=== PATIENT | female | born 1980 | race Caucasian/White ===

== ENCOUNTER 2019-12-08 12:13 | Day surgery (SDC) | payer OTHER ==
[2019-12-05 13:41] LABS: HCG UR SG 1.005 (1.003-1.030)
[2019-12-05 13:44] LABS: BASOPHILS # (AUTO) 0.03 x10^3/uL (0-0.1); BASOPHILS % (AUTO) 0 % (0-1); EOSINOPHILS # (AUTO) 0.14 x10^3/uL (0-0.4); EOSINOPHILS % (AUTO) 1 % (1-7); LYMPHOCYTES # (AUTO) 2.06 x10^3/uL (1-3.4); LYMPHOCYTES % (AUTO) 21 % (22-44); MD NO; MEAN CORPUSCULAR HEMOGLOBIN 29.5 pg (27.0-34.8); MEAN CORPUSCULAR HGB CONC 33.7 g/dL (32.4-35.8); MEAN CORPUSCULAR VOLUME 87.7 fL (80-100); MEAN PLATELET VOLUME 7.9 fL (7.4-10.4); MONOCYTES # (AUTO) 0.71 x10^3/uL (0.2-0.8); MONOCYTES % (AUTO) 7 % (2-9); NEUTROPHILS # (AUTO) 7.02 x10^3/uL (1.8-6.8); NEUTROPHILS % (AUTO) 71 % (42-75); PLATELET COUNT 241 x10^3/uL (130-400); RED BLOOD COUNT 5.19 x10^6/uL (3.82-5.3); RED CELL DISTRIBUTION WIDTH 12.8 % (9.6-15.2)
[2019-12-05 14:02] LABS: ANION GAP 4 mmol/L (5-15); CHLORIDE 106 mmol/L (98-107)
[2019-12-05 14:04] LABS: CREATININE 0.96 mg/dL (0.55-1.02)
[2019-12-05 16:20] LABS: CALCIUM 9.3 mg/dL (8.5-10.1)
[~2019-12-08] VITALS: Ht 180.3 cm; Wt 106.0 kg
[~2019-12-08 12:13] MED LIST: BUPIVACAINE/PF-EPI 0.25% 1:200K ONE; NONE PER PT
[2019-12-08] MEDS ORDERED: CHLORHEXIDINE 15 ML UDC MM STA (13:31)
[2019-12-08] MEDS ORDERED: LACTATED RINGERS 1,000 ML IV SCH (13:32)
[2019-12-08] MEDS ORDERED: FENTANYL PF 250 MCG/5ML ONE (14:31)
[2019-12-08] MEDS ORDERED: MIDAZOLAM 1 MG/ML, 2ML ONE (14:31)
[2019-12-08] MEDS ORDERED: BUPIVACAINE/PF 0.25% ONE (14:40)
[2019-12-08] MEDS ORDERED: FLUORESCEIN SODIUM 500 MG/5 ML ONE (14:41)
[2019-12-08] MEDS ORDERED: EPINEPHRINE 1 MG/ML, 1ML ONE (14:41)
[2019-12-08] MEDS ORDERED: SCOPOLAMINE 1MG PATCH TD ONE (14:45)
[2019-12-08] MEDS ORDERED: SCOPOLAMINE 1MG PATCH TD SCH (15:00)
[2019-12-08] MEDS ORDERED: ROCURONIUM 10 MG/ML,10ML ONE (15:05)
[2019-12-08] MEDS ORDERED: ONDANSETRON 2MG/ML, 2ML ONE (15:05)
[2019-12-08] MEDS ORDERED: DEXAMETHASONE 4 MG/ML, 1ML ONE (15:05)
[2019-12-08] MEDS ORDERED: SUCCINYLCHOLINE 20 MG/ML, 10ML ONE (15:05)
[2019-12-08] MEDS ORDERED: PROPOFOL 10 MG/ML, 20ML ONE (15:05)
[2019-12-08] MEDS ORDERED: CEFAZOLIN 1,000 MG ONE (15:05)
[2019-12-08] MEDS ORDERED: BUPIVACAINE/PF-EPI 0.25% 1:200K SQ ONE (15:41)
[2019-12-08] MEDS ORDERED: DIAZEPAM 5 MG/ML, 2ML IV PRN ×2 (16:30)
[2019-12-08] MEDS ORDERED: PROMETHAZINE 25 MG/ML, 1ML IV PRN (16:30)
[2019-12-08] MEDS ORDERED: OXYcodone 5 MG/5 ML ORAL.SOL UDC PO PRN (16:30)
[2019-12-08] MEDS ORDERED: FENTANYL PF 100 MCG/2ML IV PRN (16:30)
[2019-12-08] MEDS ORDERED: LABETALOL 5MG/ML, 20ML IV PRN (16:30)
[2019-12-08] MEDS ORDERED: MEPERIDINE/PF 25MG/0.5ML IVPush PRN (16:30)
[2019-12-08] MEDS ORDERED: ONDANSETRON 2MG/ML, 2ML IVPush PRN (16:30)
[2019-12-08] MEDS ORDERED: KETOROLAC 30 MG/1 ML IV PRN (16:30)
[2019-12-08] MEDS ORDERED: HYDROmorphone 1 MG/ML, 1ML INJ IV PRN (16:30)
[2019-12-08] MEDS ORDERED: ALBUTEROL SULFATE 2.5 MG/3 ML NPPB PRN (16:30)
[2019-12-08] MEDS ORDERED: METOCLOPRAMIDE 5 MG/ML, 2ML IV PRN (16:30)
[2019-12-08] MEDS ORDERED: hydrALAzine 20 MG/ML, 1ML IV PRN (16:30)
[2019-12-08] MEDS ORDERED: PROMETHAZINE 25 MG/ML, 1ML ONE (16:52)
[2019-12-08] MEDS ORDERED: OXYcodone 5 MG/5 ML ORAL.SOL UDC ONE (16:52)
[2019-12-08] MEDS ORDERED: FENTANYL PF 100 MCG/2ML ONE (16:52)
[2019-12-08] MEDS ORDERED: KETOROLAC 30 MG/1 ML ONE (17:15)
[2019-12-08] MEDS ORDERED: MEPERIDINE/PF 25MG/ML,1ML ONE (17:15)
[2019-12-08] MEDS ORDERED: OXYcodone/APAP 5/325MG TABLET PO PRN (18:30)
[2019-12-08] MEDS ORDERED: ONDANSETRON 2MG/ML, 2ML IV PRN (18:30)
[2019-12-08 18:32] VITALS: BP 121/79
[2019-12-08] MEDS ORDERED: SODIUM CHLORIDE FLUSH 10ML SYR IVF SCH (21:00)
[2019-12-08] MEDS ORDERED: OXYC5CAP2 PO (21:57)
[2019-12-08] MEDS ORDERED: ONDA-89 PO (21:58)
== END 2019-12-08 23:34 | disposition home or self-care (01) ==
LOC: OUT 12:13 → 4NE 17:39 → OUT 23:34
PROVIDERS: ATTEND Obstetrics & Gynecology
DX: R10.2 Pelvic and perineal pain (principal); Z20.828 Contact with and (suspected) exposure to other viral communicable diseases; G89.29 Other chronic pain; N85.00 Endometrial hyperplasia, unspecified; E66.3 Overweight; Z68.32 Body mass index [BMI] 32.0-32.9, adult; Z83.3 Family history of diabetes mellitus; Z82.49 Family history of ischemic heart disease and other diseases of the circulatory system
CPT/HCPCS: 36415; 58552; 80048; 81025; 85025; 87635; 88307; J0171; J0330; J0690; J1100; J1885; J2175; J2250; J2405; J2550; J2704; J3010; J3490; G0378